=== PATIENT | female | born 2000 | race Caucasian/White ===

== ENCOUNTER 2022-05-26 10:09 | Emergency (ER) | payer BC, SELFPAY ==
[2022-05-26 10:17] VITALS: BP 135/77; PULSE 86; RESP 16; TEMP 36.9; O2SAT 98; BMI 29.0
--- NOTE | 2022-05-26 10:27 | ED_ITS ---
HPI - General Adult General Time Seen by Provider: 10:27 Date Seen: 05/26/22 Chief complaint: Nausea/Vomiting Stated complaint: nausea, 7 week Time Seen by Provider: 05/26/22 10:12 Source: patient and RN notes reviewed Mode of arrival: ambulatory Limitations: no limitations History of Present Illness HPI narrative: Patient is a 21-year-old female presenting with her with significant nausea vomiting. Over the last week she has had increased nausea vomiting, today it started out immediately. She urinated this morning and at the same time started to throw up. She is not really sure if the urine was darker how much she went as she was throwing up. The nausea vomiting is becoming more problematic. She is , LMP 04/04/22. Last week she did have a little brownish spotting with wiping from the vagina. No bright red blood. She has had no significant abdominal pain. She does feel her abdomen is sore but from vomiting. There has been no fevers or chills. She has maybe had a little softer stool but does not feel like she is ill from a gastroenteritis. She feels that the symptoms are related. She has a grandmother that did have hyperemesis gravidarum. She has been taking a vitamin. She will be seen by OB here at [facility] on June 15 for her initial OB appointment. Related Data Home Medications Medication Instructions Recorded Confirmed No Known Home Medications 05/26/22 05/26/22 Allergies Allergy/AdvReac Type Severity Reaction Status Date / Time azithromycin Allergy Severe Rash Verified 05/26/22 10:16 Review of Systems Status of ROS: Reports: 6 or more systems reviewed and unremarkable except as noted in History and below [facility] Social History Smoking Status: Never smoker Do you use any of these nicotine containing products: None Second hand tobacco smoke exposure: No How often do you have a drink containing alcohol: never AUDIT-C Alcohol total score: 0 Non-prescribed substance use: denies use service: No Exam Const: Vital Signs, click to edit/add: Vital Signs - 24 hr 05/26/22 10:17 05/26/22 11:53 Temperature 98.5 F Pulse Rate [Pulse Oximeter] 86 64 Respiratory Rate 16 18 Blood Pressure [Ri ght Upper Arm] 135/77 123/66 Pulse Oximetry 98 99 Oxygen Delivery Me thod Room Air Room Air Documenting provider has reviewed patient's vital signs: yes Common normals: no apparent distress, average body habitus, oriented x3, no limitations, healthy appearing and alert General appearance: cooperative, comfortable, well kempt and well developed Other: Is hanging onto an emesis bag. HENMT: Common normals: normocephalic, head/scalp atraumatic, hearing grossly normal bilaterally and external nose normal Head and scalp: normocephalic and atraumatic Nose: external nose normal Other: Mildly dry mucous membranes without any lesions. Eye: Common normals: PERRL, EOMs intact bilaterally, conjunctivae normal and no scleral icterus Conjunctiva: conjunctiva(e) normal Pupil: PERRL Neck & C-Spine: Common normals: full ROM, no lymphadenopathy, supple, no meningeal signs, no JVD and thyroid normal Thyroid: thyroid normal Resp: Common normals: normal respiratory effort, no retractions, no use of accessory muscles and clear to auscultation bilaterally Auscultation: clear to auscultation bilaterally Cardio: Common normals: no JVD, regular rate, regular rhythm, S1 normal heart sound, S2 normal heart sound, no gallops, no clicks and no murmurs Rate: regular rate Rhythm: regular rhythm Heart sounds: S1 normal and S2 normal GI: Common normals: Normal to inspection, nondistended, normoactive bowel sounds present, soft to palpation, non-tender, no hepatosplenomegaly and no masses Palpation: soft and no hepatosplenomegaly Neuro: Common normals: oriented x3 Sensorium/orientation: alert Meningeal signs: no meningeal signs Psych: Appearance: well kempt Course Course Hospital Course: Will proceed with initiation of IV fluids and 4 mg IV Zofran. Given that she had some possible mild spotting, will do a baseline quantitative hCG. With escalation of the nausea vomiting, want to confirm intrauterine and viability, davis verses multiple gestation. Reviewed with patient that significant morning sickness or nausea vomiting in first-trimester is very common. We did briefly review hyperemesis gravidarum and her shared that her grandmother had that. Given her significant symptoms, I reviewed with them that I would certainly be reassured that this is still an active , is certainly much less worrisome for me for threatened miscarriage. We will get baseline labs, 1 L of IV fluids to start, 4 mg IV Zofran. Reevaluation(s) Reevaluation #1: Patient is notably feeling better. She still has IV fluids to finish. She has urinated twice but I do not believe the urinalysis has been collected as ordered. Will review this with nursing staff. Have reviewed that her labs are looking stable including TSH. We are still awaiting the hCG quantitative. Her ultrasound is pending as well. She does know that they saw intrauterine with a heartbeat. Time: 12:08 Reevaluation #2: Reviewed normal ultrasound with intrauterine , 1 fetus. Provided patient a copy of the ultrasound report. She had just left a urinalysis, will allow them to leave and we will contact them if there is anything concerning on this. She was tolerating some applesauce at time of discharge. We discussed use of pyridoxine and Unisom initially for 1st trimester nausea vomiting. This will be outlined in her discharge. Time: 12:32 Vital Signs Vital signs: Initial Vital Signs Temperature 98.5 F 05/26/22 10:17 Temperature Source Temporal Artery Scan 05/26/22 10:17 Pulse Rate 86 05/26/22 10:17 Pulse Rhythm 05/26/22 10:17 Pulse Strength 3+ Normal 05/26/22 10:17 Respiratory Rate 16 05/26/22 10:17 Blood Pressure 135/77 05/26/22 10:17 Blood Pressure Mean 96 05/26/22 10:17 Blood Pressure Position Sitting 05/26/22 10:17 Pulse Oximetry 98 05/26/22 10:17 Oxygen Delivery Method 05/26/22 10:17 Vital Signs Temperature 98.5 F 05/26/22 10:17 Pulse Rate 86 05/26/22 10:17 Respiratory Rate 16 05/26/22 10:17 Blood Pressure 135/77 05/26/22 10:17 Pulse Oximetry 98 05/26/22 10:17 Oxygen Delivery Method 05/26/22 10:17 Temperature 98.5 F 05/26/22 10:17 Pulse Rate 64 05/26/22 11:53 Respiratory Rate 18 05/26/22 11:53 Blood Pressure 123/66 05/26/22 11:53 Pulse Oximetry 99 05/26/22 11:53 Oxygen Delivery Method 05/26/22 11:53 Medical Decision Making Lab Data Lab results reviewed: Yes I reviewed the patient's lab results Labs: Lab Results 05/26/22 05/26/22 05/26/22 Range/Units 10:48 10:48 10:48 WBC 8.29 (4.50-11.00) K/uL RBC 5.49 H (4.00-5.20) m/uL Hgb 14.8 (12.0-16.0) gm/dL Hct 43.1 (33.0-51.0) % MCV 79 L (80-100) fL MCH 27 (26-34) pg MCHC 34 (32-36) gm/dL RDW Coeff of Shashi 12.9 (11.5-15.5) % Plt Count 319 (140-440) K/uL Neut % (Auto) 78.3 H (42.0-72.0) % Lymph % (Auto) 14.5 L (20-44) % [place] % (Auto) 6.9 (0.0-11.0) % Eos % (Auto) 0.1 (0.0-7.0) % Baso % (Auto) 0.1 (0.0-3.0) % Neut # (Auto) 6.50 (1.7-7.0) K/uL Lymph # (Auto) 1.20 (0.90-2.90) K/uL [place] # (Auto) 0.60 (0.00-0.90) K/UL Eos # (Auto) 0.01 (0.00-0.50) K/uL Baso # (Auto) 0.01 (0.00-0.30) K/uL Sodium 137 (135-149) mmol/L Potassium 3.9 (3.6-5.1) mmol/L Chloride 103 (96-114) mmol/L Carbon Dioxide 23 (20-32) mmol/L BUN 9 (5-24) mg/dL Creatinine 0.5 (0.5-1.5) mg/dL Estimated Creat Clear 166.62 Estimated GFR 137 ml/min Glucose 101 (60-115) mg/dL Lactate 1.1 (0.5-1.9) mmol/L Calcium 10.1 (8.4-10.6) mg/dL TSH (0.270-4.200) uIU/mL HCG, Quant 09481.00 mIU/mL Urine Color (Yellow) Urine Appearance (Clear) Urine pH (5.0-8.5) Ur Specific [place] (1.000-1.030) Urine Protein (Negative) Urine Glucose (UA) (Negative) Urine Ketones (Negative) Urine Blood (Negative) Urine Nitrite (Negative) Urine Bilirubin (Negative) Urine Urobilinogen (0.2-1.0) Ur Leukocyte Esterase (Negative) Urine RBC (0-2) Urine WBC (0-5) Ur Squamous Epith Cells (None-Few) Urine Bacteria (None) Urine Mucus (None) Urine Yeast (None) 05/26/22 05/26/22 Range/Units 10:48 12:16 WBC (4.50-11.00) K/uL RBC (4.00-5.20) m/uL Hgb (12.0-16.0) gm/dL Hct (33.0-51.0) % MCV (80-100) fL MCH (26-34) pg MCHC (32-36) gm/dL RDW Coeff of Shashi (11.5-15.5) % Plt Count (140-440) K/uL Neut % (Auto) (42.0-72.0) % Lymph % (Auto) (20-44) % [place] % (Auto) (0.0-11.0) % Eos % (Auto) (0.0-7.0) % Baso % (Auto) (0.0-3.0) % Neut # (Auto) (1.7-7.0) K/uL Lymph # (Auto) (0.90-2.90) K/uL [place] # (Auto) (0.00-0.90) K/UL Eos # (Auto) (0.00-0.50) K/uL Baso # (Auto) (0.00-0.30) K/uL Sodium (135-149) mmol/L Potassium (3.6-5.1) mmol/L Chloride (96-114) mmol/L Carbon Dioxide (20-32) mmol/L BUN (5-24) mg/dL Creatinine (0.5-1.5) mg/dL Estimated Creat Clear Estimated GFR ml/min Glucose (60-115) mg/dL Lactate (0.5-1.9) mmol/L Calcium (8.4-10.6) mg/dL TSH 1.350 (0.270-4.200) uIU/mL HCG, Quant mIU/mL Urine Color Yellow (Yellow) Urine Appearance Cloudy A (Clear) Urine pH 5.5 (5.0-8.5) Ur Specific [place] 1.025 (1.000-1.030) Urine Protein Negative (Negative) Urine Glucose (UA) Negative (Negative) Urine Ketones 4+ A (Negative) Urine Blood Negative (Negative) Urine Nitrite Negative (Negative) Urine Bilirubin 1+ A (Negative) Urine Urobilinogen 0.2 (0.2-1.0) Ur Leukocyte Esterase Negative (Negative) Urine RBC 0-2 (0-2) Urine WBC 2-5 (0-5) Ur Squamous Epith Cells Moderate A (None-Few) Urine Bacteria Moderate A (None) Urine Mucus Moderate A (None) Urine Yeast Moderate A (None) Imaging Data Ultrasound limited OB: Attestation: I have reviewed the pertinent imaging results. Radiologist's impression: Patient: JOHANA ROSARIO Facility:?[facility] Patient ID:?[id number] Site Patient ID:?[id number]. Site :?[id number] Study:?US OB Pelvis -05/26/2022 11:48:03 AM Ordering Physician:Magalie Ho Final Report: INDICATION: N/V, SPOTTING COMPARISON: None. TECHNIQUE: Real-time mooney-scale imaging of the pelvis was performed. FINDINGS: Sonographic imaging demonstrates a single living intrauterine gestation. The embryo demonstrates a regular cardiac rate measuring 131 beats per minute. The embryo`s crown-rump length measurement of 0.7 cm corresponds to a gestational age of 6 weeks 4 days with a sonographic due date of 01/15/2023. There is a normal-appearing yolk sac. There are no gross abnormalities noted within the embryo at this early state of development. The gestational sac has a normal appearance. There is no evidence of a perigestational hemorrhage. The amount of fluid within the sac appears appropriate for gestational age. The cervix is closed. The myometrium appears normal. The right ovary is normal. The left ovary is not visualized. There are no suspicious fluid collections noted in the cul-de-sac. IMPRESSION: Normal first trimester OB ultrasound exam. Gestational age calculated at with a sonographic due date of . Dictated by Cristhian Delaney MD @ 05/26/2022 12:08:46 PM (Electronic Signature) Discharge Plan Discharge Clinical Impression: Nausea and vomiting during prior to 22 weeks gestation Patient Disposition: Home, Self-Care Condition: Stable Instructions: Nausea and Vomiting in (ED) Additional Instructions: Take pyridoxine 25mg 3x/day (B6), take Unasom 25mg 2x during the day and 50mg at bedtime to help with nausea and vomitting. Review handout. If these things are not helping control your symptoms, please call OB to try to get in more quickly. Need to try to continue to take your vitamin daily. Activity Level: Activity as Tolerated Prescriptions: No Action No Known Home Medications Follow Up/Referrals: Rekha Richardson CNM [Primary Care Provider] - Stand Alone Forms: [employer] Info Instructions
--- NOTE | 2022-05-26 10:38 | CRLHL7_ITS ---
For Patients: As a result of the Cures Act, medical imaging exams and procedure reports are released immediately into your electronic medical record. You may view this report before your referring provider. If you have questions, please contact your health care provider. INDICATION: N/V, SPOTTING COMPARISON: None. TECHNIQUE: Real-time mooney-scale imaging of the pelvis was performed. FINDINGS: Sonographic imaging demonstrates a single living intrauterine gestation. The embryo demonstrates a regular cardiac rate measuring 131 beats per minute. The embryo`s crown-rump length measurement of 0.7 cm corresponds to a gestational age of 6 weeks 4 days with a sonographic due date of 01/15/2023. There is a normal-appearing yolk sac. There are no gross abnormalities noted within the embryo at this early state of development. The gestational sac has a normal appearance. There is no evidence of a perigestational hemorrhage. The amount of fluid within the sac appears appropriate for gestational age. The cervix is closed. The myometrium appears normal. The right ovary is normal. The left ovary is not visualized. There are no suspicious fluid collections noted in the cul-de-sac. IMPRESSION: Normal first trimester OB ultrasound exam. Gestational age calculated at with a sonographic due date of . Dictated by Cristhian Delaney MD @ 05/26/2022 12:08:46 PM (Electronically Signed)
[2022-05-26] MEDS: 0.9 % SODIUM CHLORIDE 1000 ml 1,000 ML IV (10:58)
[2022-05-26 10:59] LABS: Lactate* 1.1 mmol/L (0.5-1.9)
[2022-05-26] MEDS: ONDANSETRON 2 MG/ML inj 4 MG IVP (10:59)
[2022-05-26 11:03] LABS: Basophils Absolute Auto 0.01 K/uL (0.00-0.30); Basophils Percent Auto 0.1 % (0.0-3.0); Eosinophils Absolute Auto 0.01 K/uL (0.00-0.50); Eosinophils Percent Auto 0.1 % (0.0-7.0); Hematocrit 43.1 % (33.0-51.0); Hemoglobin* 14.8 gm/dL (12.0-16.0); Immature Granulocytes Abs Auto 0.01 K/uL (0.00-0.30); Immature Granulocytes Pct Auto 0.1 %; Lymphocytes Percent Auto 14.5 % (20-44); Mean Corpuscular HGB Conc 34 gm/dL (32-36); Mean Corpuscular Hemoglobin 27 pg (26-34); Mean Corpuscular Volume 79 fL (80-100); Monocytes Percent Auto 6.9 % (0.0-11.0); Neutrophils Percent Auto 78.3 % (42.0-72.0); Platelet Count* 319 K/uL (140-440); RDW Coefficient of Variation % 12.9 % (11.5-15.5); Red Blood Count 5.49 m/uL (4.00-5.20); White Blood Count* 8.29 K/uL (4.50-11.00)
[2022-05-26 11:18] LABS: Chloride* 103 mmol/L (96-114); Slide Review Reflex No; Sodium* 137 mmol/L (135-149)
[2022-05-26 11:19] LABS: Potassium* 3.9 mmol/L (3.6-5.1)
[2022-05-26 11:21] LABS: Carbon Dioxide* 23 mmol/L (20-32); Creatinine* 0.5 mg/dL (0.5-1.5); Est. Creatinine Clearance* 166.62; Estimated Glomerular Filt Rate 137 ml/min
[2022-05-26 11:22] LABS: Blood Urea Nitrogen* 9 mg/dL (5-24); Calcium* 10.1 mg/dL (8.4-10.6); Glucose* 101 mg/dL (60-115)
[2022-05-26 11:53] VITALS: BP 123/66; PULSE 64; RESP 18; O2SAT 99
[2022-05-26 12:32] LABS: Appearance Urine Cloudy (Clear); Bilirubin Urine 1+ (Negative); Blood Urine Negative (Negative); Color Urine Yellow (Yellow); Glucose Urine Negative (Negative); Ketones Urine 4+ (Negative); Leukocyte Esterase Urine Negative (Negative); Nitrite Urine Negative (Negative); Protein Urine Negative (Negative); Specific Gravity Urine 1.025 (1.000-1.030); Urobilinogen Urine 0.2 (0.2-1.0); pH Urine 5.5 (5.0-8.5)
[2022-05-26 12:42] LABS: Bacteria Urine Moderate; RBC Urine 0-2 (0-2); Squamous Epithelial Cell Urine Moderate (None-Few)
[2022-05-26 12:43] LABS: Mucus Urine Moderate
== END 2022-05-26 12:44 | disposition home or self-care (01) ==
PROVIDERS: Emergency Provider Family Medicine; PCP Advanced Practice Midwife
DX: R11.2 Nausea with vomiting, unspecified (principal); Z3A.01 Less than 8 weeks gestation of pregnancy
CPT/HCPCS: 36415; 76817; 80048; 81001; 83605; 84443; 84702; 85025; 87086; 96374; 99283; 99284; J2405; J7030

== ENCOUNTER 2022-06-08 13:20 | Emergency (ER) | payer BC, SELFPAY ==
[2022-06-08 13:37] VITALS: BP 126/80; PULSE 76; RESP 16; TEMP 36.2; O2SAT 99
--- NOTE | 2022-06-08 15:01 | ED_ITS ---
HPI - General Adult General Time Seen by Provider: 15:01 Date Seen: 06/08/22 Chief complaint: Nausea/Vomiting Stated complaint: Vomiting Time Seen by Provider: 06/08/22 14:32 Source: patient and RN notes reviewed Mode of arrival: ambulatory Limitations: no limitations History of Present Illness HPI narrative: Patient is a very chema 21-year-old female here with her in her 1st trimester . I had initially seen her on May 26 for 1st trimester nausea vomiting. She had had some spotting prior to that visit. Ultrasound on that visit showed a davis IUP, good hCG. Patient notes no further spotting or bleeding. No fevers, no significant abdominal pain. In the interim the [employer] SpAm and B6 worked maybe for short period but then quit working about a week ago. She is throwing up probably a minimum of 3 to 4 times a day. She has her initial OB here at [facility] on June 15. Related Data Previous Rx's Medication Instructions Recorded ondansetron 4 mg disintegrating 4 mg PO Q8H PRN nausea and 06/08/22 tablet vomiting #30 tabs Allergies Allergy/AdvReac Type Severity Reaction Status Date / Time azithromycin Allergy Severe Rash Verified 06/08/22 13:41 Review of Systems Status of ROS: Reports: 6 or more systems reviewed and unremarkable except as noted in History and below [facility] Social History Smoking Status: Never smoker Do you use any of these nicotine containing products: None Second hand tobacco smoke exposure: No How often do you have a drink containing alcohol: never AUDIT-C Alcohol total score: 0 Non-prescribed substance use: denies use service: No Exam Const: Vital Signs, click to edit/add: Vital Signs - 24 hr 06/08/22 13:37 Temperature 97.1 F L Pulse Rate [Pulse Oximeter] 76 Respiratory Rate 16 Blood Pressure [Ri ght Upper Arm] 126/80 Pulse Oximetry 99 Oxygen Delivery Me thod Room Air Documenting provider has reviewed patient's vital signs: yes Common normals: no apparent distress, average body habitus, oriented x3, no limitations, healthy appearing and alert General appearance: cooperative, comfortable, well kempt and well developed Other: Carrying an emesis bag, looks like she does not feel well but is in no apparent distress. HENMT: Common normals: normocephalic, head/scalp atraumatic and hearing grossly normal bilaterally Head and scalp: normocephalic and atraumatic Eye: Common normals: PERRL, EOMs intact bilaterally, conjunctivae normal and no scleral icterus Conjunctiva: conjunctiva(e) normal Pupil: PERRL Resp: Common normals: normal respiratory effort, no retractions, no use of accessory muscles and clear to auscultation bilaterally Auscultation: clear to auscultation bilaterally Cardio: Common normals: regular rate, regular rhythm, S1 normal heart sound, S2 normal heart sound, no gallops, no clicks and no murmurs Rate: regular rate Rhythm: regular rhythm Heart sounds: S1 normal and S2 normal GI: Common normals: Normal to inspection, nondistended, normoactive bowel sounds present, soft to palpation, non-tender and no hepatosplenomegaly Palpation: soft and no hepatosplenomegaly Neuro: Common normals: oriented x3 Sensorium/orientation: alert Psych: Appearance: well kempt Course Course Hospital Course: Will establish an IV, recheck a basic metabolic panel. Do not feel she needs other labs or any further imaging as most of the workup was done on the . We will give her 2 L IV fluid, 4 mg IV Zofran. I have contacted OB on-call and they agree with initiating oral Zofran at home as well, spoke with Dr. Elsie Granados. Reevaluation(s) Reevaluation #1: Have reviewed with patient her normal electrolytes. Reviewed that I have already sent a prescription for Zofran in for her. She needs to start her 2 L of IV fluid which is already been ordered. Time: 16:00 Vital Signs Vital signs: Initial Vital Signs Temperature 97.1 F L 06/08/22 13:37 Temperature Source Temporal Artery Scan 06/08/22 13:37 Pulse Rate 76 06/08/22 13:37 Respiratory Rate 16 06/08/22 13:37 Blood Pressure 126/80 06/08/22 13:37 Blood Pressure Mean 95 06/08/22 13:37 Blood Pressure Position Sitting 06/08/22 13:37 Pulse Oximetry 99 06/08/22 13:37 Oxygen Delivery Method Room Air 06/08/22 13:37 Vital Signs Temperature 97.1 F L 06/08/22 13:37 Pulse Rate 76 06/08/22 13:37 Respiratory Rate 16 06/08/22 13:37 Blood Pressure 126/80 06/08/22 13:37 Pulse Oximetry 99 06/08/22 13:37 Oxygen Delivery Method Room Air 06/08/22 13:37 Temperature 97.1 F L 06/08/22 13:37 Pulse Rate 76 06/08/22 13:37 Respiratory Rate 16 06/08/22 13:37 Blood Pressure 126/80 06/08/22 13:37 Pulse Oximetry 99 06/08/22 13:37 Oxygen Delivery Method Room Air 06/08/22 13:37 Medical Decision Making Lab Data Labs: Lab Results 06/08/22 Range/Units 15:13 Sodium 137 (135-149) mmol/L Potassium 3.7 (3.6-5.1) mmol/L Chloride 104 (96-114) mmol/L Carbon Dioxide 22 (20-32) mmol/L BUN 6 (5-24) mg/dL Creatinine 0.4 L (0.5-1.5) mg/dL Estimated GFR 144 ml/min Glucose 81 (60-115) mg/dL Calcium 9.9 (8.4-10.6) mg/dL Critical Care Time Critical Care Time Critical Care Time: No Discharge Plan Discharge Clinical Impression: Nausea and vomiting during prior to 22 weeks gestation Patient Disposition: Home, Self-Care Condition: Stable Instructions: Nausea and Vomiting in (ED) Additional Instructions: Try Zofran per prescription to see if that helps with the nausea vomiting. Keep your appointment this coming next week for your initial OB. Activity Level: Activity as Tolerated Prescriptions: New ondansetron 4 mg tablet,disintegrating 4 mg PO Q8H PRN (Reason: nausea and vomiting) Qty: 30 0RF Follow Up/Referrals: Rekha Richardson CNM [Primary Care Provider] - Stand Alone Forms: [employer] Info Instructions
[2022-06-08] MEDS: ONDANSETRON 2 MG/ML inj 4 MG IVP (15:19)
[2022-06-08] MEDS: 0.9 % SODIUM CHLORIDE 1000 ml 1,000 ML IV (15:19)
[2022-06-08 15:40] LABS: Chloride* 104 mmol/L (96-114); Potassium* 3.7 mmol/L (3.6-5.1); Sodium* 137 mmol/L (135-149)
[2022-06-08 15:43] LABS: Creatinine* 0.4 mg/dL (0.5-1.5); Estimated Glomerular Filt Rate 144 ml/min
[2022-06-08 15:44] LABS: Blood Urea Nitrogen* 6 mg/dL (5-24); Calcium* 9.9 mg/dL (8.4-10.6); Carbon Dioxide* 22 mmol/L (20-32); Glucose* 81 mg/dL (60-115)
[2022-06-08] MEDS: LACTATED RINGERS 1000 ML 1,000 ML IV (15:59)
== END 2022-06-08 17:00 | disposition home or self-care (01) ==
PROVIDERS: Emergency Provider Family Medicine; PCP Advanced Practice Midwife
DX: R11.2 Nausea with vomiting, unspecified (principal); Z34.91 Encounter for supervision of normal pregnancy, unspecified, first trimester
CPT/HCPCS: 36415; 80048; 96374; 99283; J2405; J7030; J7120

== ENCOUNTER 2022-06-15 08:22 | Outpatient (CLI) | payer BC, SELFPAY ==
--- NOTE | 2022-06-15 08:45 | CRLHL7_ITS ---
For Patients: As a result of the Century Cures Act, medical imaging exams and procedure reports are released immediately into your electronic medical record. You may view this report before your referring provider. If you have questions, please contact your health care provider. INDICATION: First trimester scan, establish dates. COMPARISON: 05/26/2022 TECHNIQUE: Real-time mooney-scale imaging of the pelvis was performed. FINDINGS: Sonographic imaging demonstrates a single living intrauterine gestation. The embryo demonstrates a regular cardiac rate measuring 171 beats per minute. The embryo`s crown-rump length measurement of 2.8 cm corresponds to a gestational age of 9 weeks 4 days with a sonographic due date of 01/14/2023. There is a normal-appearing yolk sac. There are no gross abnormalities noted within the embryo at this early state of development. The gestational sac has a normal appearance. There is a small 0.7 x 2.1 x 0.4 cm perigestational hemorrhage. The amount of fluid within the sac appears appropriate for gestational age. IMPRESSION: Single living intrauterine with sonographic gestational age 9 weeks 4 days and sonographic due date 01/14/2023. Small subchorionic hemorrhage measuring 0.7 x 2.1 x 0.4 cm. Dictated by Cristhian Delaney MD @ 06/15/2022 9:33:39 AM (Electronically Signed)
== END 2022-06-15 08:23 | disposition home or self-care (01) ==
LOC: US 08:23
PROVIDERS: Visit Provider Advanced Practice Midwife
DX: Z34.91 Encounter for supervision of normal pregnancy, unspecified, first trimester (principal); Z3A.10 10 weeks gestation of pregnancy
CPT/HCPCS: 76801; 80053; 86592; 86703; 86762; 86787; 86803; 86850; 86900; 86901; 87086; 87340

== ENCOUNTER 2022-06-15 09:11 | Outpatient (CLI) | payer BC, SELFPAY | END 2022-06-15 09:12 | disposition home or self-care (01) | PROVIDERS: Visit Provider Advanced Practice Midwife | DX: Z34.91 Encounter for supervision of normal pregnancy, unspecified, first trimester (principal); Z3A.10 10 weeks gestation of pregnancy | CPT/HCPCS: 80053; 86592; 86703; 86762; 86787; 86803; 86850; 86900; 86901; 87086; 87340 ==

== ENCOUNTER 2022-07-01 11:14 | Outpatient (CLI) | payer BC, SELFPAY | END 2022-07-01 11:15 | disposition home or self-care (01) | LOC: NFLDREF 11:15 | PROVIDERS: Visit Provider Advanced Practice Midwife | DX: Z34.91 Encounter for supervision of normal pregnancy, unspecified, first trimester (principal); Z3A.12 12 weeks gestation of pregnancy | CPT/HCPCS: 87086 ==

== ENCOUNTER 2022-08-22 09:03 | Outpatient (CLI) | payer BC, SELFPAY ==
--- NOTE | 2022-08-22 09:15 | CRLHL7_ITS ---
For Patients: As a result of the Century Cures Act, medical imaging exams and procedure reports are released immediately into your electronic medical record. You may view this report before your referring provider. If you have questions, please contact your health care provider. INDICATION: Evaluate anatomy. COMPARISON: 06/15/2022 TECHNIQUE: Real time mooney scale imaging of the fetus was performed as well as color Doppler analysis of the umbilical vessels. FINDINGS: Sonographic imaging demonstrates a single living intrauterine gestation. Fetus demonstrates a regular cardiac rate of 168 beats per minute. Fetus has a breech position. The placenta lies anteriorly without evidence of placenta previa. The edge of the placenta is located 6.7 cm from the internal cervical os. Amniotic fluid volume appears normal. Single deepest vertical pocket: 5.2 cm. The cervix is closed and measures 3.8 cm in length. The composite ultrasound gestational age is calculated at 19 weeks 1 day with an estimated sonographic due date of 01/15/2023. The estimated weight is 278 grams which lies at the 11th %. The following biometric measurements were obtained: Biparietal diameter: 4.3 cm/19 weeks 1 day 16th% Head circumference: 16.5 cm/19 weeks 1 day 11th% Abdominal circumference: 14.0 cm/19 weeks 3 days 25th% Femur length: 2.9 cm/19 weeks 0 days 12th% The HC/AC ratio measures: 1.18 range (1.09-1.26) On anatomic survey, there is a normal appearance of the cerebral ventricles, cavum septi pellucidi, cisterna magna and cerebellum. Limited visualization of the face and heart due to position. The cervical, thoracic and lumbar spine are well visualized and appear normal. The diaphragm and stomach appear normal. The kidneys and bladder also appear normal. Renal pelviectasis measures 3.9 millimeters on the left and 3.8 millimeters on the right, considered normal. There is a normal three-vessel cord and cord insertion site. The four extremities appear normal. IMPRESSION: Sonographic age 19 weeks 1 day and sonographic due date of 01/15/2023. Sonographic age 6 days behind the clinical age. Estimated weight 11th percentile. Abdominal circumference 25th percentile. Incomplete visualization of the face structures and heart views due to position. Follow-up recommended. Dictated by Cristhian Delaney MD @ 08/22/2022 10:37:43 AM (Electronically Signed)
== END 2022-08-22 09:04 | disposition home or self-care (01) ==
LOC: US 09:04
PROVIDERS: Visit Provider Advanced Practice Midwife
DX: Z34.92 Encounter for supervision of normal pregnancy, unspecified, second trimester (principal); Z3A.19 19 weeks gestation of pregnancy
CPT/HCPCS: 76805

== ENCOUNTER 2022-09-05 08:05 | Outpatient (CLI) | payer BC, SELFPAY ==
--- NOTE | 2022-09-05 08:15 | CRLHL7_ITS ---
For Patients: As a result of the Century Cures Act, medical imaging exams and procedure reports are released immediately into your electronic medical record. You may view this report before your referring provider. If you have questions, please contact your health care provider. INDICATION: EVAL HEART AND FACE VIEWS NOT OBTAINED ON ANATOMY SCAN COMPARISON: 08/22/2022 TECHNIQUE: Real time mooney scale imaging of the fetus was performed. FINDINGS: Sonographic imaging demonstrates a single living intrauterine gestation. Fetus demonstrates a regular cardiac rate of 150 beats per minute. Fetus has a vertex position. The placenta lies anteriorly. Amniotic fluid volume appears normal. Single deepest vertical pocket: 5.9 cm. The cervix is closed and measures 3.7 cm in length. Normal face, profile and nose/lips. There is a normal four-chamber heart view and the left and right ventricular outflow tracts appear normal. IMPRESSION: Normal facial views and heart views. Dictated by Cristhian Delaney MD @ 09/05/2022 10:20:36 AM (Electronically Signed)
== END 2022-09-05 08:06 | disposition home or self-care (01) ==
PROVIDERS: Visit Provider Advanced Practice Midwife
DX: O35.8XX0 Maternal care for other (suspected) fetal abnormality and damage, not applicable or unspecified (principal)
CPT/HCPCS: 76816

== ENCOUNTER 2022-10-17 08:54 | Outpatient (CLI) | payer BC, SELFPAY | END 2022-10-17 08:55 | disposition home or self-care (01) | LOC: NFLDREF 10-19 13:19 | PROVIDERS: Visit Provider Advanced Practice Midwife | DX: Z34.93 Encounter for supervision of normal pregnancy, unspecified, third trimester (principal); Z3A.28 28 weeks gestation of pregnancy | CPT/HCPCS: 86592; 86850 ==

== ENCOUNTER 2022-11-21 10:14 | Outpatient (CLI) | payer BC, SELFPAY | END 2022-11-21 10:15 | disposition home or self-care (01) | PROVIDERS: Visit Provider Advanced Practice Midwife | DX: O26.899 Other specified pregnancy related conditions, unspecified trimester (principal); Z67.91 Unspecified blood type, Rh negative | CPT/HCPCS: J2791 ==

== ENCOUNTER 2022-12-13 08:12 | Outpatient (CLI) | payer BC, SELFPAY ==
--- NOTE | 2022-12-13 08:15 | CRLHL7_ITS ---
For Patients: As a result of the Century Cures Act, medical imaging exams and procedure reports are released immediately into your electronic medical record. You may view this report before your referring provider. If you have questions, please contact your health care provider. INDICATION: Third trimester scan, evaluate growth. COMPARISON: 09/05/2022 TECHNIQUE: Real time mooney scale imaging of the fetus was performed. FINDINGS: Sonographic imaging demonstrates a single living intrauterine gestation. Fetus demonstrates a regular cardiac rate of 152 beats per minute. Fetus has a vertex position. The placenta lies anteriorly. Amniotic fluid volume appears normal and there is a single deepest vertical pocket: 6.1 cm. The estimated weight is 2968gm which lies at the 63rd %. On the prior OB ultrasound exam dated 08/22/2022 the estimated weight was at the 11th%. BPD 93rd percentile. HC 77th percentile. AC 84th percentile. FL 5th percentile. The HC/AC ratio measures 1.01 range (0.92-1.05). IMPRESSION: Sonographic gestational age 36 weeks 6 days and sonographic due date 01/04/2023. Sonographic age 5 days ahead of the clinical age. Estimated weight 63rd percentile. Abdominal circumference 84th percentile. Dictated by Cristhian Delaney MD @ 12/13/2022 10:25:22 AM (Electronically Signed)
== END 2022-12-13 08:13 | disposition home or self-care (01) ==
LOC: US 08:12
PROVIDERS: Visit Provider Advanced Practice Midwife
DX: Z34.93 Encounter for supervision of normal pregnancy, unspecified, third trimester (principal); Z3A.36 36 weeks gestation of pregnancy
CPT/HCPCS: 76816; 87081; 87653

== ENCOUNTER 2023-01-17 06:57 | Inpatient (IN) | payer BC, SELFPAY ==
[2023-01-17] VITALS (74 sets, daily range): BP systolic 105–179; BP diastolic 50–90; PULSE 52–171; RESP 16; TEMP 36.8–37; O2SAT 82–100
--- NOTE | 2023-01-17 07:57 | P.LDBA_ITS ---
Subjective History of Present Illness Time Seen by Provider: 08:09 Date Seen: 01/17/23 Specific Issues/Plans Partner: Harmon H & P done 12/20/22 by Nacho 1. Hyperemesis down 10 lbs at 1st OB, 2 additional lbs at 12 wks 2 ED visits for fluids prior to 1st OB Zofran, tried reglan, rx sent for compazine 07/01 2. Asthma, Mild 3. O Negative Blood Type Recommend Rhogam at 28 weeks: AT 30 weeks: Given 11/21/22, Antibody screen neg at 28 weeks Recommend Rhogam pp 4. Limited view of face and heart, EFW 11%, kidney pelvis 4mm bilaterally Close follow-up, consider growth in 3rd trimester 36 week growth: EFW 63%ile 5. Anemia, Hgb 10.4 Encouraged iron, not taking iron 6. Failed 156, planning 1 week of home testing (did not tolerate 1 hour gct) 11/08: Called and reviewed log, copy portal messaged. About 17% abnormal with few pp above 120 slightly. No additional testing Pap due pp COVID: declines Flu: declines TDAP: declined Comments: Annabel is being admitted to Labor and Delivery for an IOl for dates. She is a 22 year old G 1 P 0 at?41.1 weeks gestation. Her full history and physical was dictated by Osmany Ramírez on 12/20/22. Please see this for details. ? Her partner is with her for support. She is planning an epidural for pain management. OB - Problem Based A/P Additional Plan (1) Encounter for induction of labor: Status: Acute (2) Post-dates : Status: Acute (3) Rh negative status during : Status: Acute (4) Hyperemesis of : Status: Acute (5) Asthma: Status: Chronic Plan Assessment:?? at 41.1 weeks gestation?? GBS neg IOL for dates complicated by: -hyperemisis -asthma -anemia, which has improved ? Plan:?? * Admit to L & D?for IOL. Options reviewed based on bishops score of pitocin vs cytotec. Decision made to proceed with cytotec at this time. Will reevaluate with subsequent doses and can consider switching to pitocin if needed. * Encouraged position changes to facilitate labor. Baby feels asynclitic at this time. * IV access: yes, pt planning an epidural * Monitoring: continuous at this time per protocol for IOL * Candidate for analgesia of choice.? Planning epidural for pain management * Anticipate progress to NVD Delivery/Labor/Induction Plan Plan: induction Induction method: per misoprostol protocol OB Exam Physical Exam Vital signs: Pulse BP 86 126/73 01/17/23 07:21 01/17/23 07:21 Narrative: VSS, afebrile? General Appearance:? Calm, cooperative.? No acute distress.? Normal affect.? Psychiatric Exam: Alert and oriented, appropriate affect? HEENT: normocephalic, neck supple, full ROM? Respiratory:? Symmetrical chest wall movement.? Normal respiratory effort.? Clear to auscultation? Cardiac:? regular rate and rhythm? Abdomen: Gravid, non tender? Extremities:? normal and trace edema? Skin: warm, dry.??? Ctx:? none FHTs:? Baseline: 135.? Variability: moderate.?? Accels: present.??? Decels:? none.? SVE: 2/80/-1, moderate, anterior. BBOW? Membranes: intact?
[2023-01-17] MEDS: miSOPROStoL 25 MCG/0.25 TABLET PO ×2 (08:14→12:16)
[2023-01-17 13:58] LABS: Basophils Absolute Auto 0.01 K/uL (0.00-0.30); Basophils Percent Auto 0.1 % (0.0-3.0); Eosinophils Absolute Auto 0.02 K/uL (0.00-0.50); Eosinophils Percent Auto 0.2 % (0.0-7.0); Hematocrit 35.5 % (33.0-51.0); Immature Granulocytes Abs Auto 0.03 K/uL (0.00-0.30); Immature Granulocytes Pct Auto 0.4 %; Lymphocytes Percent Auto 16.4 % (20-44); Mean Corpuscular HGB Conc 34 gm/dL (32-36); Mean Corpuscular Hemoglobin 28 pg (26-34); Mean Corpuscular Volume 84 fL (80-100); Monocytes Percent Auto 8.4 % (0.0-11.0); Neutrophils Percent Auto 74.5 % (42.0-72.0); Platelet Count* 184 K/uL (140-440); Red Blood Count 4.23 m/uL (4.00-5.20); White Blood Count* 8.43 K/uL (4.50-11.00)
[2023-01-17 14:02] LABS: Slide Review Reflex No
--- NOTE | 2023-01-17 17:48 | PM.OBPNL ---
Subjective Time Seen by Provider: 18:00 Date Seen: 01/17/23 Narrative: Annabel received 2 doses of cytotec. She made little change after the first dose, Ctx started becoming more intense after the second dose. She tried nitrous for pain relief, but it made her nauseated. She proceeded with just positioning and moving to cope with the contractions. Overall Annabel is coping well with labor pain/contractions. Her partner is with her for support. At this time she is requesting an epidural for pain management. Per the RN, she sounded pushy, so a SVE was done prior to placement. Objective Exam: VSS, afebrile General Appearance:? Calm, cooperative. No acute distress. ? Psychiatric Exam: Alert and oriented, appropriate affect Abdomen: Gravid Ctx: ?Q 1-2 min apart. ? Moderate - FHTs: Baseline: 125. Variability: moderate. Accels: present. Decels: none. SVE: 3/100/0 Membranes: Intact ? Vital Signs: Last Vital Signs Temp 98.2 F 01/17/23 07:21 Pulse 74 01/17/23 16:41 Resp 16 01/17/23 07:21 BP 124/82 01/17/23 16:41 Pulse Ox 97 01/17/23 11:23 Plan Plan: Assessment:?? at 41.1 gestation?? GBS neg IOL for dates Patient is coping well with challenges of labor.?? Labor type: Induced, Early labor? complicated by: -hyperemisis -asthma -anemia, which has improved ? Plan:?? Cytotec held. Will continue with expectant management at this time. Monitor for progress. Continue with routine intrapartum cares as ordered.?? Patient encouraged to move and change positions to promote physiologic labor and .?? Candidate for analgesia of choice if desired. Requesting epidural, anesthesia notified Anticipate progress to NVD.
[2023-01-17] MEDS: LACTATED RINGERS 1000 ML 1,000 ML 500 ML IV ×2 (18:14→19:17)
[2023-01-17] MEDS: ROPIVACAINE 0.2% 100 ml 100 ML 12 MG EPIDURAL (18:15)
[2023-01-17] MEDS: LIDOCAINE 2% (PF) 5 ML VIAL EPIDURAL (18:15)
--- NOTE | 2023-01-17 18:26 | PM.ANBPRC ---
[facility] Medical History Hidradenitis suppurativa ?L73.2 - Hidradenitis suppurativa (ICD-10) Asthma ?J45.909 - Unspecified asthma, uncomplicated (ICD-10) Surgical History History of appendectomy (10/16/20) ?Z90.49 - Acquired absence of other specified parts of digestive tract (ICD-10) Family History Father No problems noted. Grandfather Heart disease Mother No problems noted. Social History Narrative: SOCIAL?? Education: some college?? 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 Partner: [employer]- trade manager at [employer]?? Lives with: [place]?? Pets: dog??(Link) Abuse: Denies past/present?? Special Diet: Denies?? Ok with a blood transfusion: yes?? Culture or hinduism beliefs: denies?? RISK FACTORS?? Exercise Times/wk: walk 3 times?? Depression/Anxiety: denies?? Seat Belt Use: Routinely Smoking: Denies past/present?? Alcohol/day: Denies while , socially when not is minimal use Caffeine: coffee one cup a day?? Drug Use: Denies past/present?? Chicken Pox: Yes as a child?? MRSA: Denies?? Plan for feeding baby: Breast What is your current living situation?: I presently have a place to live Problems where you live: no known problems In the past 12 months, utilities in danger of being shut off: no In past 12 months, lack of transportation kept you from medical appts, meetings, work, or getting things needed for daily living: no In the past 12 mos, have been you worried that your food would run out before you had money to buy more?: never true In the past 12 mos, the food you bought just didn't last and you didn't have money to buy more?: never true Smoking Status: Never smoker Do you use any of these nicotine containing products: None Second hand tobacco smoke exposure: No How often do you have a drink containing alcohol: never AUDIT-C Alcohol total score: 0 Non-prescribed substance use: denies use How often does anyone, including family, friends and others, physically hurt you: never How often does anyone, including family, friends and others, insult or talk down to you: never How often does anyone, including family, friends and others, threaten you with harm: never How often does anyone, including family, friends and others, scream or curse at you: never Little interest or pleasure in doing things: several days Feeling down, depressed, or hopeless: several days service: No Meds Home Medications and Allergies Home Medications Medication Instructions Recorded Confirmed Type docosahexaenoic acid 200 mg mg PO 08/22/22 01/13/23 History capsule ( DHA) ferrous sulfate, dried 159 mg (45 159 mg PO .qod 12/20/22 01/17/23 History mg iron) tablet,extended release (iron ER) magnesium oxide 400 mg PO QHS 12/20/22 01/17/23 History Allergies Allergy/AdvReac Type Severity Reaction Status Date / Time azithromycin [From Zithromax] Allergy Severe Rash Verified 01/13/23 11:00 Results Labs Labs: Laboratory Results - last 24 hr 01/17/23 13:42 WBC 8.43 RBC 4.23 Hgb 12.0 Hct 35.5 MCV 84 MCH 28 MCHC 34 RDW Coeff of Shashi 14.0 Plt Count 184 Neut % (Auto) 74.5 H Lymph % (Auto) 16.4 L Morrow % (Auto) 8.4 Eos % (Auto) 0.2 Baso % (Auto) 0.1 Neut # (Auto) 6.30 Lymph # (Auto) 1.40 Morrow # (Auto) 0.70 Eos # (Auto) 0.02 Baso # (Auto) 0.01 Abs Immat Gran (auto) 0.03 Imm/Tot Granulo (auto) 0.4 Blood Type O Negative Antibody Screen POSITIVE Vital Signs Vital Signs: Last Vital Signs Temp 98.2 F 01/17/23 07:21 Pulse 75 01/17/23 18:24 Resp 16 01/17/23 07:21 BP 131/62 01/17/23 18:24 Pulse Ox 100 01/17/23 18:21 Height: 165.1 cm Anesthesia Procedures Epidural Insertion Patient Location: OB Start Time: 18:00 Stop Time: 18:25 Start Date: 01/17/23 Stop Date: 01/17/23 Reason for Block: procedure for pain Patient Position: sitting Performed By: Champ Ugarte Department Specialist: Sheldon Santana Preanesthetic Checklist: IV checked, risks and benefits discussed, monitors and equipment checked, pre-op evaluation, timeout performed and anesthesia consent Prep: chlorhexidine gluconate Monitoring: blood pressure monitoring, continuous pulse oximetry and heart rate Approach: midline Vertebral Space: lumbar (1-5) Epidural Technique: DONTE saline Needle Type: Tuohy needle Injection Technique: continuous catheter Needle gauge: 17 Needle Length (cm): 10 cm Needle Insertion Depth (cm): 6 Catheter Gauge: 19 Catheter Type: multi-orifice Catheter at skin depth (cm): 11 Test Dose Result: negative and lidocaine 1.5% with epinephrine 1 to 200,000
[2023-01-17] MEDS: ONDANSETRON 2 MG/ML inj 4 MG IV (21:44)
[2023-01-18] VITALS (21 sets, daily range): BP systolic 104–147; BP diastolic 56–89; PULSE 63–144; RESP 16; TEMP 36.7–37.2; O2SAT 93–100
[2023-01-18] MEDS: OXYTOCIN 30 unit/500 ML in NS 30 UNIT/500 ML BAG 300 UNIT IVPB (00:05)
[2023-01-18] MEDS: miSOPROStoL 800 MCG/4 TABLET PR (00:19)
[2023-01-18] MEDS: TRANEXAMIC ACID 100 MG/ML INJ 1000 MG IV (00:27)
[2023-01-18] MEDS: METHYLERGONOVINE MALEATE 0.2 MG/ML INJ IM (00:35)
--- NOTE | 2023-01-18 00:52 | W.PM.OBVAGDE ---
OB Procedure Vag Delivery Mother Details Mother Details: The patient is a 22 year-old, 1, now Para 1, admitted on 01/17/23 at Days gestation. Delivered on 01/18/23 : 1 Para: 1 Weeks Gestation: 41.2 Admission Date: 01/17/23 Additional Details Amniotic Membrane Status: SROM Amniotic Membrane Rupture Date: 01/17/23 Amniotic Membrane Rupture Time: 20:24 Amniotic Membrane Fluid Description: Clear (noted at SROM) and Meconium Stained (Thick mec noted at delivery) Analgesia/Anesthesia Type: Epidural and Nitrous Oxide Waterbirth: No Pitcoin: No (PP only for AMTSL) Intrapartal Events: Labor Induction and Mod/Heavy Meconium Fluid Induction Method: per misoprostol protocol Labor Onset: 17:00 Complete: 21:36 Pushin:40 Heart: heart tones during second stage were 135 with occ decels down to the 100s Delivery Details Delivery Date: 01/18/23 Delivery Time: 00:02 Route of delivery: Gender: Male Infant Viability: Alive; Heart Rate Present Position at Delivery: OA Delivery Details: ? Annabel requested an epidural, but continued to feel some pressure. SVE done to check for continued progress after epidural, and noted to be complete. Baby still high, so decision made to labor down. Baby noted to be lower w/ next SVE, and she began pushing with good descent. Occ decels noted with or after ctx, but good return to baseline. She pushed in semifowlers and left side lying. ? Spontaneous vaginal delivery at 0002 of?a viable?male infant.??Delivered in vertex OA position.??Shoulders delivered easily.? Loose double nuchal cord noted, and reduced after delivery. Membranes remained over infants face after delivery also swept off immediately. Infant stunned at , but cry noted with stimulation. Thick mec also noted with delivery of , previously cleared. ??Infant placed on maternal abdomen.??Cord?was clamped and cut after a 5+ minute delay.??Nose and mouth were bulb suctioned.? Shoulder dystocia: no? Nuchal cord: Yes, X2, loose, reduced after delivery? Meconium stained?fluid: yes, thick noted after delivery? Water : no? ? ? 8 at 1 minute and 8 at 5 minutes.? ? Placenta delivered spontaneously and?complete?at 0012 with a?3 vessel?cord.??Assumed to be complete. Area noted where it divots in, but edges do not appear torn, and there is a piece that seems to fit in there. Attempted to control bleeding with fundal massage and?pitocin?for AMTSL.?Clots noted in vaginal vault. Cytotec given rectally, and bimanual done. Moderate amount of clots removed from vaginal vault and uterus. Uterus firm. Bleeding continued with a constant trickle. TXA and methergine given. More clots removed w/ bimanual exam. Bleeding noted to have slowed. ? Mother and infant were stable after delivery.? ? Lacerations:? ?left periurethral laceration, not bleeding, not repaired? ? Blood loss: 350?mL.? Blood loss measurement type: QBL? ? ? Sponge,?lap?and needles counts are correct.? Mother and were stable after delivery.? 1 Minute Interval Total Score: 8 5 Minute Interval Total Score: 8 Additional Details Shoulder Dystocia: No Placenta Delivery Time: 00:12 Placental Delivery Description: Spontaneous Procedure Done: Global Blood Loss: 350 Laceration: Periurethral - 1st Degree (Left, not bleeding, not repaired) Blood Loss Measurement Type: QBL Bakri Used: No Sponge/Need Count Correct: Yes Cord Vessel Description: 3 Vessels Event Summary Status: Mother and infant were stable after delivery. Disposition: floor
[2023-01-18] MEDS: LACTATED RINGERS 1000 ML 1,000 ML 500 ML IV (01:16)
[2023-01-18] MEDS: IBUPROFEN 600 MG TABLET PO ×3 (03:10→15:30)
[2023-01-18] MEDS: CEFAZOLIN 2 GM in 0.9 % SODIUM CHLORIDE Mini-bag 100 ML IVPB (03:35)
[2023-01-18] MEDS: DOCUSATE SODIUM 100 MG CAPSULE PO (09:10)
[2023-01-18 15:27] LABS: Hematocrit 30.2 % (33.0-51.0); Hemoglobin* 10.2 gm/dL (12.0-16.0); Mean Corpuscular HGB Conc 34 gm/dL (32-36); Mean Corpuscular Hemoglobin 29 pg (26-34); Mean Corpuscular Volume 85 fL (80-100); Platelet Count* 184 K/uL (140-440); Red Blood Count 3.57 m/uL (4.00-5.20); White Blood Count* 11.73 K/uL (4.50-11.00)
[2023-01-18 15:34] LABS: Slide Review Reflex No
[2023-01-18 15:42] LABS: Aspartate Amino Transferase* 25 U/L (12-35); Blood Urea Nitrogen* 12 mg/dL (5-24); Creatinine* 0.4 mg/dL (0.5-1.5); Estimated Glomerular Filt Rate 143 ml/min
[2023-01-18 16:07] LABS: Alanine Aminotransferase* 16 U/L (4-35)
--- NOTE | 2023-01-18 18:20 | P.OBPN_ITS ---
OB - PN:Subj Subjective Date Seen: 01/18/23 Narrative: Patient complained this afternoon of chest pain and upper abdominal pain. She had a slightly elevated BP at this time. She was unable to describe her pain well to the nurse at the time of the event. Just said it hurt but not able to q uantify as dull or sharp and not able to rate. Given the location of her pain and slightly elevated BP, PreE labs were ordered. Approximately 30 minutes later, went to examine pt and she was standing in her room caring for her . Denied pain at that time. She felt her pain may have been related to cramping. Declined physical exam at that time. OB - PN: Obj Exam Physical Exam: Vital signs: Temp Pulse Resp BP Pulse Ox O2 Del Method 98.6 F 69 16 134/87 98 Room Air 01/18/23 15:04 01/18/23 15:04 01/18/23 15:04 01/18/23 15:04 01/18/23 15:04 01/18/23 15:04 Narrative: GENERAL APPEARANCE:? normal affect, alert, no distress MOOD:? appropriate CHEST:? clear to auscultation HEART:? regular rate and rhythm Constitutional: Constitutional: no acute distress OB - PN: Obj Data Labs Labs: Laboratory Results - last 24 hr 01/18/23 15:21 WBC 11.73 H RBC 3.57 L Hgb 10.2 L Hct 30.2 L MCV 85 MCH 29 MCHC 34 Plt Count 184 BUN 12 Creatinine 0.4 L Estimated GFR 143 AST 25 ALT 16 OB - PN: A/P Delivery Assessment and Plan (1) Post-dates : Status: Acute (2) Rh negative status during : Status: Acute (3) Hyperemesis of : Status: Acute (4) Asthma: Status: Chronic (5) care and examination immediately after delivery: Status: Acute Plan Plan: routine care Comments: on Day of delivery PreE labs all normal. Watch BP for any increase. Encourage self care and routine pain medications.
[2023-01-19] MEDS: IBUPROFEN 600 MG TABLET PO ×2 (00:09→05:56)
[2023-01-19 01:30] VITALS: BP 106/69; PULSE 70; RESP 16; TEMP 36.7; O2SAT 97
--- NOTE | 2023-01-19 07:23 | PM.OBDSVD1 ---
DS: Providers Provider Time Seen by Provider: : Date Seen: 01/19/23 Date of admission: 01/17/23 06:57 Primary care physician: Not a Local Provider Admitting Clinician: Alejandra Francisco CNM Attending Physician on discharge: Alejandra Francisco CNM Date of Discharge: 01/19/23 DS: Diagnosis Discharge Diagnosis (1) care and examination immediately after delivery: Status: Acute (2) NVD (normal vaginal delivery): Status: Acute (3) Lactating mother: Status: Acute (4) Laceration of periurethral tissue with delivery: Status: Acute Exam Narrative: Exam Narrative: VSS, afebrile GENERAL APPEARANCE: ?normal affect, alert, no distress MOOD: ?appropriate HEENT: normocephalic, neck supple, full ROM CHEST: ?Symmetrical chest wall movement. ?Normal respiratory effort. ?Clear to auscultation HEART: ?regular rate and rhythm ABDOMEN: ?soft, non-tender. Uterine fundus is firm, at Umbilicus, Midline and is appropriate for the stage of recovery. ?Bowel sounds present. PERINEUM: ?mild edema of the perineum, there is a periurethral laceration that is healing well. EXTREMITIES: ?normal and trace edema Const: Vital Signs, click to edit/add: Vital Signs - 24 hr 01/18/23 07:48 01/18/23 11:40 01/18/23 15:04 Temperature 98.3 F 98.4 F 98.6 F Pulse Rate [Blood Pressure Cuff] 63 68 69 Respiratory Rate 16 16 16 Blood Pressure [Le ft Arm] 104/56 L 123/81 134/87 Pulse Oximetry 97 98 98 Oxygen Delivery Me thod Room Air Room Air Room Air 01/18/23 19:50 01/19/23 01:30 Temperature 98.7 F 98.0 F Pulse Rate [Blood Pressure Cuff] 72 70 Respiratory Rate 16 16 Blood Pressure [Le ft Arm] 117/70 106/69 Pulse Oximetry 98 97 Oxygen Delivery Me thod Room Air Room Air Documenting provider has reviewed patient's vital signs: yes OB - DS: Summary Hospital Course Hospital Course: Annabel is a 22 y.o. G 1 P 1 who was admitted to L & D for IOL for dates. ?She had an uncomplicated NVD. She did have some bleeding and clots post delivery, treated with medication and bimanual removal. Overall QBL WNL. The patient feels well. ?The pain is well controlled with current medications. ?She has no new complaints. ?She is breast feeding and reports things are going well.? the patient has done well.? Vitals have been stable.? She has remained afebrile.? Has a good appetite, is tolerating a general diet. ?She is voiding without difficulty.? She is passing gas and has had a bowel movement.? She is ambulating and denies any dizziness.? Has Small amount of rubra lochia. She is planning condoms for prevention. She did have a few elevated BPs and abdominal pain yesterday. Preeclampsia labs WNL, and BPs have remained WNL since. Problems: none plan: Discharge home with baby. Follow up in 2 weeks and 6 weeks. , may follow up with if needed Peripartum Data Infant delivery method: Vaginal Laceration description: Periurethral - 1st Degree [place] Gender: Male Discharge Plan: Home Status at Discharge Functional status at discharge: independent ambulation Overall status at discharge: patient is progressing back to baseline Time Spent with Patient Time attestation: Total time spent providing and/or coordinating discharge services: Time spent: Less than 30 minutes Discharge Plan Discharge Disposition: Home, Self-Care Date of Admission: 01/17/23 06:57 Attending Provider on Discharge: Lelo Ramírez Primary Care Provider: Provider,Not a Local Condition: Stable Anticipated Discharge Date/Time: 01/19/23 11:00 Discharge Medications: New docusate sodium 100 mg Capsule 100 mg PO BID PRNQty: 100 0RF Rx Instructions: Take 1 cap 1-2 times a day as needed for constipation ibuprofen 600 mg Tablet 600 mg PO Q6H PRNQty: 60 0RF Continued DHA 200 mg capsule 200 mg PO DAILY magnesium oxide 400 mg magnesium capsule 400 mg PO QHS Discontinued ondansetron HCl 4 mg tablet 4 mg PO Q4H PRN (Reason: nausea and vomiting) Qty: 30 4RF iron 159 mg (45 mg iron) tablet extended release 159 mg PO .qod Discharge Orders: Discharge Order (Routine); Ordered 01/19/23 Ordered By: Lelo Ramírez Patient Education: OB Over the Counter Medication Information, OB Vaginal/Breast Feeding Additional Instructions: Follow up in 2 weeks and 6 weeks Activity Level: Activity as Tolerated Discharge Diet: Regular Follow Up Appointments: Provider,Not a Local [Primary Care Provider] - Forms: [employer] Info Instructions
== END 2023-01-19 10:42 | disposition home or self-care (01) | DRG 560 ==
PROVIDERS: Admitting Provider Advanced Practice Midwife; PCP Advanced Practice Midwife; Visit Provider Advanced Practice Midwife
DX: O71.82 Other specified trauma to perineum and vulva (principal); Z3A.41 41 weeks gestation of pregnancy; Z37.0 Single live birth; O99.52 Diseases of the respiratory system complicating childbirth; O99.02 Anemia complicating childbirth; O77.0 Labor and delivery complicated by meconium in amniotic fluid
CPT/HCPCS: 01967; 36415; 59200; 82565; 84450; 84460; 84520; 85025; 85027; 85461; 86850; 86870; 86880; 86900; 86901; 86906; A9270; J0690; J2210; J2371; J2405; J2791; J2795; J7120

== ENCOUNTER 2023-01-20 11:00 | Outpatient (CLI) | payer BC, SELFPAY ==
[2023-01-20 10:51] VITALS: BP 144/82; PULSE 79; RESP 18; TEMP 36.7; O2SAT 98
[2023-01-20 11:13] VITALS: BP 113/64; PULSE 82; RESP 16; TEMP 36.7; O2SAT 97
== END 2023-01-20 11:01 | disposition home or self-care (01) ==
LOC: OB CLI 01-25 09:04
PROVIDERS: Visit Provider Advanced Practice Midwife
DX: Z39.2 Encounter for routine postpartum follow-up (principal)
CPT/HCPCS: 85461; J2791

== ENCOUNTER 2023-02-11 03:35 | Emergency (ER) | payer BC, SELFPAY ==
[2023-02-11 03:41] VITALS: BP 125/74; PULSE 80; RESP 16; TEMP 36.7; O2SAT 96
--- NOTE | 2023-02-11 03:53 | ED_ITS ---
HPI - General Adult General Chief complaint: Rib Pain Stated complaint: 3wks , rib pain, cramps Time Seen by Provider: 02/11/23 03:37 History of Present Illness HPI narrative: Patient is a 22-year-old woman who had her 1st baby approximately 2 weeks ago who developed extreme back pain while breast-feeding her child tonight. Patient became very agitated due to her back pain and her breathing became somewhat labored. She is made full recovery. She felt the fullness in her low back extending up into the base of her chest. The pain resolved with rest and now she feels well. She is quite upset and is concerned that maybe she is developing preeclampsia. She has no persistent shortness of breath or pain. Oxygen saturations 97% on room air. She has had no nausea no vomiting no fevers no chills. She is having no other further difficulties although she did have hyperemesis during her she is having no further vomiting. Related Data Home Medications Medication Instructions Recorded Confirmed docosahexaenoic acid 200 mg 200 mg PO DAILY 08/22/22 01/18/23 capsule ( DHA) magnesium oxide 400 mg PO QHS 12/20/22 01/17/23 Previous Rx's Medication Instructions Recorded docusate sodium 100 mg capsule 100 mg PO BID PRN #100 caps 01/19/23 ibuprofen 600 mg tablet 600 mg PO Q6H PRN #60 tabs 01/19/23 Allergies Allergy/AdvReac Type Severity Reaction Status Date / Time azithromycin [From Zithromax] Allergy Severe Rash Verified 01/13/23 11:00 Review of Systems Status of ROS: Reports: 10 or more systems reviewed and unremarkable except as noted in History and below [facility] Medical History Rh negative status during ?O26.899 - Other specified related conditions, unspecified trimester (ICD-10) ?Z67.91 - Unspecified blood type, rh negative (ICD-10) Hyperemesis of ?O21.0 - Mild hyperemesis gravidarum (ICD-10) Hidradenitis suppurativa ?L73.2 - Hidradenitis suppurativa (ICD-10) Asthma ?J45.909 - Unspecified asthma, uncomplicated (ICD-10) Surgical History History of appendectomy (10/16/20) ?Z90.49 - Acquired absence of other specified parts of digestive tract (ICD- 10) Family History Father No problems noted. Grandfather Heart disease Mother No problems noted. Social History Narrative: SOCIAL?? Education: some college?? 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 Partner: [employer]- manager of internal at [employer]?? Lives with: Ankit?? Pets: dog??(Link) Abuse: Denies past/present?? Special Diet: Denies?? Ok with a blood transfusion: yes?? Culture or caodaism beliefs: denies?? RISK FACTORS?? Exercise Times/wk: walk 3 times?? Depression/Anxiety: denies?? Seat Belt Use: Routinely Smoking: Denies past/present?? Alcohol/day: Denies while , socially when not is minimal use Caffeine: coffee one cup a day?? Drug Use: Denies past/present?? Chicken Pox: Yes as a child?? MRSA: Denies?? Plan for feeding baby: Breast What is your current living situation?: I presently have a place to live Problems where you live: no known problems In the past 12 months, utilities in danger of being shut off: no In past 12 months, lack of transportation kept you from medical appts, meetings, work, or getting things needed for daily living: no In the past 12 mos, have been you worried that your food would run out before you had money to buy more?: never true In the past 12 mos, the food you bought just didn't last and you didn't have money to buy more?: never true Smoking Status: Never smoker Do you use any of these nicotine containing products: None Second hand tobacco smoke exposure: No How often do you have a drink containing alcohol: never AUDIT-C Alcohol total score: 0 Non-prescribed substance use: denies use How often does anyone, including family, friends and others, physically hurt you : never How often does anyone, including family, friends and others, insult or talk down to you: never How often does anyone, including family, friends and others, threaten you with harm: never How often does anyone, including family, friends and others, scream or curse at you: never Little interest or pleasure in doing things: several days Feeling down, depressed, or hopeless: several days service: No Exam Narrative: Exam Narrative: EXAM GENERAL: Patient appears comfortable and well. EYES: No scleral icterus. LYMPH: No supraclavicular or cervical lymphadenopathy. SKIN: Visible skin seen during exam normal or with benign process only. EXT: No dependent lower extremity pedal edema. HEART: Regular rate and rhythm with no murmurs, rubs, or gallops. LUNGS: Clear to auscultation bilaterally with no crackles or wheezes. ABD: Soft, non tender, non distended. PSYCH: Good eye contact, speech is not pressured. Const: Vital Signs, click to edit/add: Vital Signs - 24 hr 02/11/23 03:41 Temperature 98.0 F Pulse Rate [Pulse Oximeter] 80 Respiratory Rate 16 Blood Pressure [Ri ght Upper Arm] 125/74 Pulse Oximetry 96 Oxygen Delivery Me thod Room Air Course Course ED Course: Patient seen and examined Vital Signs Vital signs: Initial Vital Signs Temperature 98.0 F 02/11/23 03:41 Temperature Source Temporal Artery Scan 02/11/23 03:41 Pulse Rate 80 02/11/23 03:41 Respiratory Rate 16 02/11/23 03:41 Blood Pressure 125/74 02/11/23 03:41 Blood Pressure Mean 91 02/11/23 03:41 Blood Pressure Position Sitting 02/11/23 03:41 Pulse Oximetry 96 02/11/23 03:41 Oxygen Delivery Method Room Air 02/11/23 03:41 Vital Signs Temperature 98.0 F 02/11/23 03:41 Pulse Rate 80 02/11/23 03:41 Respiratory Rate 16 02/11/23 03:41 Blood Pressure 125/74 02/11/23 03:41 Pulse Oximetry 96 02/11/23 03:41 Oxygen Delivery Method Room Air 02/11/23 03:41 Temperature 98.0 F 02/11/23 03:41 Pulse Rate 80 02/11/23 03:41 Respiratory Rate 16 02/11/23 03:41 Blood Pressure 125/74 02/11/23 03:41 Pulse Oximetry 96 02/11/23 03:41 Oxygen Delivery Method Room Air 02/11/23 03:41 Medical Decision Making MDM Narrative Medical decision making narrative: Patient is a 22-year-old woman 2 weeks post who developed low back pain with shortness of breath while . She has no further symptoms but became quite agitated due to her symptoms. She has had no history of blood clots in the past. Her vital signs are stable and normal. In she has a normal exam. I did consider doing a CT of her chest to rule out pulmonary embolism however I think gets very unlikely to be causing her symptoms. She may be having mechanical back pain or uterine contractions with of the . In either case her assessment tonight is normal and will through shared decision- making we did elect for watchful waiting. She will follow-up if symptoms worsen or recur will follow-up with her primary physician as needed. Differential diagnosis includes but not limited to pulmonary embolism mechanical low back pain uterine contractions acute abdomen pneumonia pneumothorax. Discharge Plan Discharge Clinical Impression: Back pain Patient Disposition: Home, Self-Care Condition: Stable Additional Instructions: Monitor your symptoms Tylenol as needed Warm compresses Contact your provider or the emergency room his symptoms recur. Activity Level: No Restrictions Discharge Diet: Regular Prescriptions: No Action DHA 200 mg capsule 200 mg PO DAILY magnesium oxide 400 mg magnesium capsule 400 mg PO QHS docusate sodium 100 mg Capsule 100 mg PO BID PRNQty: 100 0RF Rx Instructions: Take 1 cap 1-2 times a day as needed for constipation ibuprofen 600 mg Tablet 600 mg PO Q6H PRNQty: 60 0RF Follow Up/Referrals: Provider,Not a Local [Primary Care Provider] - Stand Alone Forms: Spontly Info Instructions
[2023-02-11 04:04] VITALS: BP 118/70; PULSE 74; RESP 16; TEMP 36.8; O2SAT 96
[2023-02-11 04:05] VITALS: BP 118/70; PULSE 74; RESP 16; TEMP 36.8
== END 2023-02-11 04:05 | disposition home or self-care (01) ==
PROVIDERS: Emergency Provider Internal Medicine
DX: M54.50 Low back pain, unspecified (principal); R06.02 Shortness of breath; Z39.1 Encounter for care and examination of lactating mother
CPT/HCPCS: 99282; 99283

== ENCOUNTER 2024-07-23 10:17 | Outpatient (CLI) | payer BC, SELFPAY ==
--- NOTE | 2024-07-23 10:45 | CRLHL7_ITS ---
For Patients: As a result of the Cures Act, medical imaging exams and procedure reports are released immediately into your electronic medical record. You may view this report before your referring provider. If you have questions, please contact your health care provider. OB ULTRASOUND INDICATION: Dating and viability. TECHNIQUE: Real time grayscale imaging of the fetus was performed. Transvaginal. LMP: 05/25/2024. TRANG by LMP: 03/01/2025. GA: 8 w, 3 d. Previous US: No. CRL: 0.47 cm. 6 w 1 d. TRANG: 03/17/2025. FHR: 107 BPM. Gestational sac: 1.0 cm. Yolk sac: 3.7 mm. Appears within normal limits. Right ovary: 4.1 x 2.6 x 2.7 cm. CL. Left ovary: N/V. IMPRESSION: 1. Single living intrauterine with sonographic gestational age 6 weeks 1 day and sonographic due date 03/17/2025. 2. Incidental cyst within the right ovary measures 2.4 cm. Cristhian Delaney M.D. Diagnostic Radiologist [email or web address] FREDY/dixie colin/Dictated by: Cristhian Delaney MD @ 07/23/2024 11:28:00 AM (Electronically Signed)
== END 2024-07-23 10:18 | disposition home or self-care (01) ==
LOC: US 10:18
PROVIDERS: PCP Nurse Practitioner Family; Visit Provider Advanced Practice Midwife
DX: Z34.91 Encounter for supervision of normal pregnancy, unspecified, first trimester (principal); O34.81 Maternal care for other abnormalities of pelvic organs, first trimester; N83.201 Unspecified ovarian cyst, right side; Z3A.08 8 weeks gestation of pregnancy
CPT/HCPCS: 76817; 86592; 86703; 86704; 86706; 86762; 86787; 86803; 86850; 86900; 86901; 87086; 87340

== ENCOUNTER 2024-08-06 11:10 | Outpatient (CLI) | payer BC, SELFPAY ==
--- NOTE | 2024-08-06 11:15 | CRLHL7_ITS ---
For Patients: As a result of the Cures Act, medical imaging exams and procedure reports are released immediately into your electronic medical record. You may view this report before your referring provider. If you have questions, please contact your health care provider. INDICATION: Low heart tones on 1st ultrasound. TECHNIQUE: Transvaginal OB pelvic ultrasound. COMPARISON: 07/23/2024. FINDINGS: Intrauterine pole with crown-rump length of 1.4 cm corresponding to 7 weeks 5 days. Intrauterine gestational sac with mean sac diameter of 1.7 cm corresponding to 6 weeks 4 days. No heart tones demonstrated. Uterus as imaged is otherwise unremarkable. Right ovary: 3.9 x 2.2 x 2.9 cm. Suspected corpus luteum cyst measures 2 cm.. Normal-appearing color flow. Left ovary: 2.9 x 1.8 x 1.4 cm. No ovarian or adnexal lesion. Normal-appearing color flow. Small pelvic free fluid. IMPRESSION: demise. Dictated by Ray Cabrera MD @ 08/06/2024 12:13:03 PM Dictated by: Ray Cabrera MD @ 08/06/2024 12:13:31 (Electronically Signed)
== END 2024-08-06 11:11 | disposition home or self-care (01) ==
LOC: US 11:11
PROVIDERS: PCP Nurse Practitioner Family; Visit Provider Advanced Practice Midwife
DX: O36.8310 Maternal care for abnormalities of the fetal heart rate or rhythm, first trimester, not applicable or unspecified (principal); O36.4XX0 Maternal care for intrauterine death, not applicable or unspecified; Z3A.01 Less than 8 weeks gestation of pregnancy
CPT/HCPCS: 76817; J2791

== ENCOUNTER 2024-08-16 09:46 | Outpatient (CLI) | payer BC, SELFPAY ==
--- NOTE | 2024-08-16 10:00 | CRLHL7_ITS ---
For Patients: As a result of the Century Cures Act, medical imaging exams and procedure reports are released immediately into your electronic medical record. You may view this report before your referring provider. If you have questions, please contact your health care provider. CLINICAL HISTORY: Follow-up missed , bleeding COMPARISON: 08/06/2024 TECHNIQUE: 2D mooney-scale and color Doppler images were acquired of the pelvis using a transvaginal approach. FINDINGS: Endometrium is heterogeneous and contains nonvascular material representing blood products. Endometrial thickness 14 millimeters. Uterus measures 8.4 x 4.4 x 5.5 cm. Left ovary is not visualized, possibly from overlying bowel loops. Right ovary measures 3.8 x 2.3 x 2.1 cm. The right ovary demonstrates normal arterial and venous blood flow on color Doppler analysis. There are no suspicious fluid collections within the cul-de-sac. IMPRESSION: Blood products associated with the endometrial canal without evidence of retained products. Dictated by Cristhian Delaney MD @ 08/19/2024 6:20:24 AM (Electronically Signed)
== END 2024-08-16 09:47 | disposition home or self-care (01) ==
LOC: US 09:46
PROVIDERS: PCP Nurse Practitioner Family; Visit Provider Midwife
DX: O02.1 Missed abortion (principal)
CPT/HCPCS: 76817; 84702

== ENCOUNTER 2024-08-27 10:11 | Outpatient (CLI) | payer BC, OTHER, SELFPAY | END 2024-08-27 10:12 | disposition home or self-care (01) | LOC: NFLDREF 10:12 | PROVIDERS: PCP Nurse Practitioner Family; Visit Provider Midwife | DX: O02.1 Missed abortion (principal) | CPT/HCPCS: 84702 ==

== ENCOUNTER 2024-11-27 08:58 | Outpatient (CLI) | payer BC, SELFPAY ==
--- NOTE | 2024-11-27 09:15 | CRLHL7_ITS ---
For Patients: As a result of the Century Cures Act, medical imaging exams and procedure reports are released immediately into your electronic medical record. You may view this report before your referring provider. If you have questions, please contact your health care provider. OB ULTRASOUND INDICATION: Dating and viability. TECHNIQUE: Real time grayscale imaging of the fetus was performed. Transvaginal. Transvaginal imaging performed to better demonstrate the endometrium and ovaries. LMP: 09/26/2024. TRANG by LMP: 07/03/2025. GA: 8 w, 6 d. Previous US: Not provided. CRL: 1.8 cm. 8 w 2 d. TRANG: 07/07/2025. FHR: 163 BPM. Gestational sac: 3.8 cm. Appears within normal limits. Yolk sac: 3.6 mm. Appears within normal limits. Right ovary: Within normal limits. 3.6 x 1.7 x 1.8 cm. CL. Left ovary: Within normal limits. 3 x 1.3 x 2.5 cm. IMPRESSION: 1. Single living intrauterine measures 8 weeks 2 days with sonographic due date 07/07/2025. 2. Subchorionic hemorrhage measures 1.4 x 0.8 x 1.2 cm. Cristhian Delaney M.D. Diagnostic Radiologist [email or web address] FREDY/dixie colin/Dictated by: Cristhian Delaney MD @ 11/27/2024 11:38:00 AM (Electronically Signed)
== END 2024-11-27 08:59 | disposition home or self-care (01) ==
LOC: US 09:00
PROVIDERS: PCP Nurse Practitioner Family; Visit Provider Registered Nurse
DX: O20.9 Hemorrhage in early pregnancy, unspecified (principal); Z3A.08 8 weeks gestation of pregnancy; Z34.90 Encounter for supervision of normal pregnancy, unspecified, unspecified trimester
CPT/HCPCS: 76817

== ENCOUNTER 2024-11-27 09:50 | Outpatient (CLI) | payer BC, SELFPAY ==
[2024-11-27 12:49] LABS: Chlamydia DNA Amplified* NOT DETECTED (No Detected); GC DNA Amplified* NOT DETECTED (No Detected)
== END 2024-11-27 09:51 | disposition home or self-care (01) ==
PROVIDERS: PCP Nurse Practitioner Family; Visit Provider Registered Nurse
DX: Z34.90 Encounter for supervision of normal pregnancy, unspecified, unspecified trimester (principal)
CPT/HCPCS: 83020; 83021; 85660; 86592; 86703; 86704; 86762; 86787; 86803; 86850; 87086; 87340; 87491; 87591

== ENCOUNTER 2025-02-20 09:08 | Outpatient (CLI) | payer BC, SELFPAY ==
--- NOTE | 2025-02-20 09:15 | CRLHL7_ITS ---
For Patients: As a result of the Century Cures Act, medical imaging exams and procedure reports are released immediately into your electronic medical record. You may view this report before your referring provider. If you have questions, please contact your health care provider. OB ULTRASOUND SURVEY LMP: 09/26/2024. TRANG by LMP: 07/03/2025. GA: 21 w, 0 d. INDICATION: survey. TECHNIQUE: Real time grayscale imaging of the fetus was performed. Evaluate anatomy. Transabdominal imaging performed. position: Breech. Cervix: Visualized. Technique: Transabdominal. Length of closed cervix: 4.8 cm. Placenta/cord: Posterior. Technique: Transabdominal. Placenta tip to internal OS: 6.2 cm. Umbilical Cord: 3-vessel cord. Placenta insertion: Central. Amniotic Fluid: 3.0 cm SDP (greater than/equal to: 2- less than 8 cm). SURVEY: Observed Structures. Calvarium/Spine: Cerebellum: 2.1 cm, 21 w 2 d. Cisterna Magna: 3.6 mm. Nuchal Fold: 4.6 mm. Lateral Ventricle: 5.0 mm. CSP: Yes. Midline Falx: Yes. Choroid Plexus: Yes. Spine: Yes. Abdomen: Stomach: Yes. Abd Cord Insertion: Yes. Urinary Bladder: Yes. Kidneys: Yes. Diaphragm: Yes. Face: Nose/lips: Yes. Orbital view: Yes. Profile: See impression. Limbs: Upper Extremities: Yes. Lower Extremities: Yes. Hands: Yes. Feet: See impression. Vascular: 4-Chamber Heart: See impression. LVOT: See impression. RVOT: See impression 3VV: See impression. 3VTV: See impression. BPD: 4.5 cm. 19 w, 4 d, 5.6%. HC: 17.7 cm. 20 w, 1 d, 11.1%. AC: 15.9 cm. 21 w, 0 d, 42.6%. FL: 3.3 cm. 20 w, 1 d, 16.9%. FL/AC ratio: 20.6%. HC/AC ratio: 1.1. heart rate: 147 bpm. age by this US: 20 w, 3 d. TRANG by this US: 07/07/2025. EFW: 361.06g. Weight: 0 lbs., 13 oz. Percentile by TRANG: 22.7%. IMPRESSION: 1. Concordance of clinical and sonographic dating. 2. Right renal pelvis measures slightly more than 4 mm. Follow-up in the third trimester recommended. 3. Incomplete visualization of the profile, heart, and feet. Short-term follow-up recommended. Also, would reassess the kidneys at this time. Cristhian Delaney M.D. Diagnostic Radiologist [email or web address] FREDY/dixie jj/Dictated by: Cristhian Delaney MD @ 02/20/2025 11:28:00 AM (Electronically Signed)
== END 2025-02-20 09:09 | disposition home or self-care (01) ==
LOC: US 09:10
PROVIDERS: PCP Nurse Practitioner Family; Visit Provider Advanced Practice Midwife
DX: O26.892 Other specified pregnancy related conditions, second trimester (principal); O21.2 Late vomiting of pregnancy; Z67.91 Unspecified blood type, Rh negative; Z3A.16 16 weeks gestation of pregnancy
CPT/HCPCS: 76805